=== PATIENT | male | born 1950 | race Caucasian/White ===

== ENCOUNTER 2016-10-21 04:08 | Inpatient (IN) | payer OTHER ==
[2016-10-20 12:55] LABS: HEMOGLOBIN 13.5 g/dL (13.7-18.0)
[2016-10-20 12:59] LABS: PATH.CAST-FLAG NOT PRESENT; SPERM-FLAG NOT PRESENT; SRC-FLAG NOT PRESENT; XTAL-FLAG NOT PRESENT; YLC-FLAG NOT PRESENT
[2016-10-20 13:05] LABS: BLOOD UREA NITROGEN 23 mg/dL (7-18)
[2016-10-20 13:10] LABS: ASPARTATE AMINO TRANSFERASE 15 U/L (15-37)
[~2016-10-21] VITALS: Ht 182.9 cm; Wt 98.6 kg
[~2016-10-21 04:08] MED LIST: ASPI-496 PO; ATOR-2 PO; CARV6.252 PO; CLOP75TA PO; DOXY100T9 PO; GABA300C10 PO; GENTAMICIN TD; GLIP-164 PO; HYDR-3237 PO; HYDR12.58 PO; LISI-170 PO; METF500T4 PO; SMZ/TMP PO; TRAM50TA2 PO; VARE1TAB21 PO
[2016-10-21] MEDS ORDERED: CHLORHEXIDINE MOUTHWASH 15 ML UDC MM SCH (04:30)
[2016-10-21] MEDS ORDERED: ALBUMIN HUMAN 5% 500 ML IV ONE (04:30)
[2016-10-21] MEDS ORDERED: DO NOT GIVE MC SCH (04:30)
[2016-10-21] MEDS ORDERED: METOPROLOL TARTRATE 25 MG TABLET PO ONE (05:00)
[2016-10-21] MEDS ORDERED: INSULIN ASPART 100 UNITS/ML, PEN SQ-INSULIN SCH (06:00)
[2016-10-21 06:21] VITALS: BP_SYST 135; BP_DIAS 80; BP_DIAS 82
[2016-10-21] MEDS ORDERED: HEPARIN 1,000 UNITS/ML, 10ML ONE (06:58)
[2016-10-21] MEDS ORDERED: PAPAVERINE 30 MG/ML, 2ML ONE (06:58)
[2016-10-21] MEDS ORDERED: FENTANYL PF 1000 MCG/20ML ONE (07:11)
[2016-10-21] MEDS ORDERED: MIDAZOLAM 10MG/2 ML ONE (07:11)
[2016-10-21] MEDS ORDERED: VANCOMYCIN 1,500 MG in SODIUM CHLORIDE 0.9% 250 ML IV PRN (07:30)
[2016-10-21] MEDS ORDERED: EPINEPHRINE 2 MG in SODIUM CHLORIDE 0.9% 248 ML IV SCH (07:30)
[2016-10-21] MEDS ORDERED: MANNITOL PMX 20% 500 ML IVPB PRN (07:30)
[2016-10-21] MEDS ORDERED: DEXMEDETOMIDINE 200 MCG in SODIUM CHLORIDE 0.9% 48 ML IV SCH (07:30)
[2016-10-21] MEDS ORDERED: REGULAR INSULIN 62.5 UNITS in SODIUM CHLORIDE 0.9% 249.375 ML IV PRN ×2 (07:30→12:27)
[2016-10-21] MEDS ORDERED: POTASSIUM CHLORIDE 80 MEQ, SODIUM BICARBONATE 8.4% 10 MEQ, MAGNESIUM SULFATE 0.5 GM, LI... IV PRN (07:30)
[2016-10-21] MEDS ORDERED: CEFUROXIME 1.5 GM in SODIUM CHLORIDE 0.9% 50 ML IVPB PRN (07:30)
[2016-10-21] MEDS ORDERED: PHENYLEPHRINE 10 MG in SODIUM CHLORIDE 0.9% 249 ML IV PRN ×2 (07:30→12:27)
[2016-10-21] MEDS ORDERED: PROPOFOL 10 MG/ML, 20ML ONE (08:15)
[2016-10-21] MEDS ORDERED: VASOPRESSIN 20 UNIT/ML, 1ML ONE (08:15)
[2016-10-21] MEDS ORDERED: ROCURONIUM 10 MG/ML ONE ×4 (08:15)
[2016-10-21] MEDS ORDERED: SODIUM CHLORIDE FLUSH 10ML SYR IVF SCH (09:00)
[2016-10-21] MEDS ORDERED: MUPIROCIN OINT 2%, 22GM TP SCH (09:00)
[2016-10-21] MEDS ORDERED: DESMOPRESSIN 28 MCG in SODIUM CHLORIDE 0.9% 50 ML IVPB ONE (12:00)
[2016-10-21] MEDS ORDERED: DOBUTAMINE 250 MG in SODIUM CHLORIDE 0.9% 230 ML IV PRN (12:27)
[2016-10-21] MEDS ORDERED: SODIUM CHLORIDE 0.9% 1,000 ML IV ONE (12:27)
[2016-10-21] MEDS ORDERED: DEXMEDETOMIDINE 200 MCG in SODIUM CHLORIDE 0.9% 48 ML IV PRN (12:27)
[2016-10-21] MEDS ORDERED: NITROGLYCERIN/D5W PMX 250 ML IV PRN (12:27)
[2016-10-21] MEDS ORDERED: SODIUM CHLORIDE 0.9% 1,000 ML IV PRN (12:27)
[2016-10-21] MEDS ORDERED: MEPERIDINE/PF 25MG/0.5ML IVPush PRN (12:30)
[2016-10-21] MEDS ORDERED: BISACODYL 5 MG EC TABLET PO PRN (12:30)
[2016-10-21] MEDS ORDERED: DEXTROSE 4 GM TAB.CHEW PO PRN (12:30)
[2016-10-21] MEDS ORDERED: LACTATED RINGERS 500 ML IVBOLUS PRN (12:30)
[2016-10-21] MEDS ORDERED: ACETAMINOPHEN 650 MG SUPP PR PRN (12:30)
[2016-10-21] MEDS ORDERED: PROCHLORPERAZINE 5 MG/ML, 2ML IVPush PRN (12:30)
[2016-10-21] MEDS ORDERED: BISACODYL 10 MG SUPP PR PRN (12:30)
[2016-10-21] MEDS ORDERED: EPINEPHRINE 2 MG in SODIUM CHLORIDE 0.9% 248 ML IV PRN (12:30)
[2016-10-21] MEDS ORDERED: MIDAZOLAM 1 MG/ML, 5ML IVPush PRN (12:30)
[2016-10-21] MEDS ORDERED: morphine SULFATE 10 MG/ML, 1ML IVPush PRN (12:30)
[2016-10-21] MEDS ORDERED: DEXTROSE 50%, 50ML SYRINGE IVPush PRN (12:30)
[2016-10-21] MEDS ORDERED: ACETAMINOPHEN 325 MG TABLET PO PRN (12:30)
[2016-10-21] MEDS ORDERED: GLUCAGON 1 MG IM PRN (12:30)
[2016-10-21] MEDS ORDERED: SODIUM BICARB 8.4%, 50ML SYRINGE IV PRN (12:30)
[2016-10-21] MEDS ORDERED: PROTAMINE SULFATE 10 MG/ML, 25ML ONE (12:48)
[2016-10-21] MEDS ORDERED: CALCIUM CHLORIDE 10%, 10ML SYR ONE (12:49)
[2016-10-21] MEDS ORDERED: AMINOCAPROIC ACID 250 MG/ML, 20ML ONE (12:49)
[2016-10-21] MEDS ORDERED: MAGNESIUM SULFATE PMX 2GM/50ML 50 ML ONE (12:49)
[2016-10-21] MEDS ORDERED: NITROGLYCERIN/D5W PMX 250 ML ONE (12:49)
[2016-10-21] MEDS ORDERED: AMIODARONE 50 MG/ML, 3ML ONE (12:49)
[2016-10-21] MEDS ORDERED: HEPARIN 1,000 UNITS/ML, 30ML ONE (12:53)
[2016-10-21] MEDS ORDERED: LIDOCAINE 2% 100MG/5ML SYRINGE ONE (12:53)
[2016-10-21] MEDS ORDERED: ALBUMIN HUMAN 25% 50 ML ONE (12:53)
[2016-10-21] MEDS: KSCALE TO 4.5 IV SCH ×2 (13:04→19:04)
[2016-10-21 13:12] LABS: ABG COLLECTION SITE ARTERIAL LINE
[2016-10-21 13:15] LABS: HEMATOCRIT 28.1 % (39.2-51.8); HEMOGLOBIN 9.5 g/dL (13.7-18.0)
[2016-10-21] MEDS ORDERED: POTASSIUM CHLORIDE PMX 100 ML IV ONE (14:00)
[2016-10-21] MEDS: MAGNESIUM SULFATE 1 GM in SODIUM CHLORIDE 0.9% 50 ML IVPB SCH (16:25)
[2016-10-21] MEDS: OXYcodone IR 5MG TABLET PO PRN ×4 (17:27→23:46)
[2016-10-21] MEDS: CEFUROXIME 1.5 GM in SODIUM CHLORIDE 0.9% 50 ML IVPB SCH (17:47)
[2016-10-21] MEDS: VANCOMYCIN 1,400 MG in SODIUM CHLORIDE 0.9% 250 ML IVPB SCH (19:32)
[2016-10-21 19:33] LABS: HEMATOCRIT 29.7 % (39.2-51.8); HEMOGLOBIN 9.7 g/dL (13.7-18.0)
[2016-10-21] MEDS: INSULIN ASPART 100 UNITS/ML, PEN SQ-INSULIN PRN ×4 (20:42→23:41)
[2016-10-21] MEDS: SODIUM CHLORIDE FLUSH 10ML SYR IVF SCH (20:42)
[2016-10-21] MEDS: DOCUSATE 100 MG CAPSULE PO SCH (20:44)
[2016-10-21] MEDS: MUPIROCIN OINT 2%, 22GM NAS SCH (20:44)
[2016-10-22] MEDS: INSULIN ASPART 100 UNITS/ML, PEN SQ-INSULIN PRN ×3 (00:45→12:28)
[2016-10-22] MEDS: KSCALE TO 4.5 IV SCH (01:04)
[2016-10-22 01:46] LABS: HEMATOCRIT 29.8 % (39.2-51.8); HEMOGLOBIN 9.7 g/dL (13.7-18.0)
[2016-10-22] MEDS: OXYcodone IR 5MG TABLET PO PRN ×3 (02:40→15:50)
[2016-10-22 04:20] LABS: ABG COLLECTION SITE ARTERIAL LINE
[2016-10-22 04:23] LABS: HEMATOCRIT 30.1 % (39.2-51.8); HEMOGLOBIN 9.9 g/dL (13.7-18.0); WHITE BLOOD COUNT 9.9 x10^3/uL (3.4-10)
[2016-10-22 04:31] LABS: BLOOD UREA NITROGEN 20 mg/dL (7-18)
[2016-10-22] MEDS: HYDROcodone/APAP 10/325 MG TABLET PO PRN ×3 (04:39→19:19)
[2016-10-22] MEDS: VANCOMYCIN 1,400 MG in SODIUM CHLORIDE 0.9% 250 ML IVPB SCH (06:09)
[2016-10-22] MEDS: CEFUROXIME 1.5 GM in SODIUM CHLORIDE 0.9% 50 ML IVPB SCH (06:09)
[2016-10-22] MEDS ORDERED: MAGNESIUM HYDROXIDE 8%, 30ML UDC PO PRN (08:00)
[2016-10-22] MEDS ORDERED: POTASSIUM CHLORIDE 10 MEQ TABLET.ER PO SCH (08:00)
[2016-10-22] MEDS ORDERED: FUROSEMIDE 20 MG/2 ML IV SCH (09:00)
[2016-10-22] MEDS: metFORMIN 500 MG TABLET PO SCH ×2 (09:00→19:20)
[2016-10-22] MEDS: CLOPIDOGREL 75 MG TABLET PO SCH (09:27)
[2016-10-22] MEDS: GABAPENTIN 300 MG CAPSULE PO SCH ×3 (09:28→19:20)
[2016-10-22] MEDS: PANTOPRAZOLE 40 MG IV IVPush SCH (09:29)
[2016-10-22] MEDS: ASPIRIN 81 MG TABLET EC PO SCH (09:30)
[2016-10-22] MEDS: MUPIROCIN OINT 2%, 22GM NAS SCH ×2 (09:30→19:19)
[2016-10-22] MEDS: DOCUSATE 100 MG CAPSULE PO SCH ×2 (09:30→19:19)
[2016-10-22] MEDS: MAGNESIUM SULFATE 1 GM in SODIUM CHLORIDE 0.9% 50 ML IVPB SCH (14:34)
[2016-10-22] MEDS: CHLORHEXIDINE MOUTHWASH 15 ML UDC MM SCH (14:34)
[2016-10-22] MEDS: SODIUM CHLORIDE FLUSH 10ML SYR IVF SCH ×3 (17:54→19:19)
[2016-10-22] MEDS: DOXYCYCLINE 100MG TABLET PO SCH (19:20)
[2016-10-22] MEDS: ATORVASTATIN 80 MG TABLET PO SCH (19:20)
[2016-10-22 20:10] VITALS: BP 123/66
[2016-10-23] VITALS (7 sets, daily range): BP systolic 91–142; BP diastolic 59–78
[2016-10-23] MEDS: HYDROcodone/APAP 10/325 MG TABLET PO PRN ×4 (00:42→22:14)
[2016-10-23] MEDS: METOPROLOL TARTRATE 25 MG TABLET PO/NG SCH ×4 (00:42→20:24)
[2016-10-23] MEDS: CHLORHEXIDINE MOUTHWASH 15 ML UDC MM SCH ×2 (00:42→13:41)
[2016-10-23] MEDS: OXYcodone IR 5MG TABLET PO PRN ×5 (02:11→21:20)
[2016-10-23 03:58] LABS: HEMATOCRIT 27.9 % (39.2-51.8); HEMOGLOBIN 9.1 g/dL (13.7-18.0); WHITE BLOOD COUNT 9.7 x10^3/uL (3.4-10)
[2016-10-23 04:09] LABS: BLOOD UREA NITROGEN 19 mg/dL (7-18)
[2016-10-23] MEDS: ENOXAPARIN 40 MG/0.4 ML SQ SCH (08:23)
[2016-10-23] MEDS: FUROSEMIDE 20 MG/2 ML IV SCH ×2 (08:37→20:24)
[2016-10-23] MEDS: SODIUM CHLORIDE FLUSH 10ML SYR IVF SCH ×4 (08:38→21:22)
[2016-10-23] MEDS: MUPIROCIN OINT 2%, 22GM NAS SCH ×2 (08:38→20:23)
[2016-10-23] MEDS: ASPIRIN 81 MG TABLET EC PO SCH (08:39)
[2016-10-23] MEDS: DOCUSATE 100 MG CAPSULE PO SCH ×2 (08:39→20:24)
[2016-10-23] MEDS: POTASSIUM CHLORIDE 10 MEQ TABLET.ER PO SCH ×2 (08:39→20:23)
[2016-10-23] MEDS: metFORMIN 500 MG TABLET PO SCH ×2 (08:39→20:24)
[2016-10-23] MEDS: CLOPIDOGREL 75 MG TABLET PO SCH (08:40)
[2016-10-23] MEDS: GABAPENTIN 300 MG CAPSULE PO SCH ×3 (08:40→20:24)
[2016-10-23] MEDS: PANTOPRAZOLE 40 MG IV IVPush SCH (08:42)
[2016-10-23] MEDS: DOXYCYCLINE 100MG TABLET PO SCH ×2 (08:44→20:24)
[2016-10-23] MEDS: INSULIN ASPART 100 UNITS/ML, PEN SQ-INSULIN PRN ×4 (08:51→20:28)
[2016-10-23] MEDS: MAGNESIUM SULFATE 1 GM in SODIUM CHLORIDE 0.9% 50 ML IVPB SCH (13:41)
[2016-10-23] MEDS: ATORVASTATIN 80 MG TABLET PO SCH (20:24)
[2016-10-24] MEDS: CHLORHEXIDINE MOUTHWASH 15 ML UDC MM SCH (00:51)
[2016-10-24] MEDS: OXYcodone IR 5MG TABLET PO PRN ×6 (00:51→21:56)
[2016-10-24 02:32] VITALS: BP 95/58
[2016-10-24 05:58] LABS: BLOOD UREA NITROGEN 23 mg/dL (7-18)
[2016-10-24 07:15] VITALS: BP 103/66
[2016-10-24] MEDS: INSULIN ASPART 100 UNITS/ML, PEN SQ-INSULIN PRN ×4 (08:31→22:04)
[2016-10-24] MEDS: SODIUM CHLORIDE FLUSH 10ML SYR IVF SCH ×4 (08:32→21:56)
[2016-10-24] MEDS: FUROSEMIDE 20 MG/2 ML IV SCH ×2 (08:32→21:55)
[2016-10-24] MEDS: MUPIROCIN OINT 2%, 22GM NAS SCH ×2 (08:33→21:55)
[2016-10-24] MEDS: ASPIRIN 81 MG TABLET EC PO SCH (08:34)
[2016-10-24] MEDS: DOCUSATE 100 MG CAPSULE PO SCH ×2 (08:34→21:55)
[2016-10-24] MEDS: POTASSIUM CHLORIDE 10 MEQ TABLET.ER PO SCH ×2 (08:35→21:54)
[2016-10-24] MEDS: metFORMIN 500 MG TABLET PO SCH ×2 (08:35→21:55)
[2016-10-24] MEDS: PANTOPROZOLE 40MG TABLET PO SCH (08:36)
[2016-10-24] MEDS: GABAPENTIN 300 MG CAPSULE PO SCH ×3 (08:36→21:54)
[2016-10-24] MEDS: CLOPIDOGREL 75 MG TABLET PO SCH (08:36)
[2016-10-24] MEDS: DOXYCYCLINE 100MG TABLET PO SCH ×2 (08:37→21:55)
[2016-10-24] MEDS: METOPROLOL TARTRATE 25 MG TABLET PO/NG SCH ×2 (08:38→21:55)
[2016-10-24] MEDS: ENOXAPARIN 40 MG/0.4 ML SQ SCH (08:38)
[2016-10-24] MEDS ORDERED: CLOPIDOGREL 75 MG TABLET PO SCH (09:00)
[2016-10-24 14:45] VITALS: BP 113/72
[2016-10-24 19:38] VITALS: BP 104/63
[2016-10-24] MEDS: ATORVASTATIN 80 MG TABLET PO SCH (21:55)
[2016-10-25 01:52] VITALS: BP 96/60
[2016-10-25] MEDS: ONDANSETRON 2MG/ML, 2ML IVPush PRN ×2 (03:43→08:03)
[2016-10-25 05:44] LABS: HEMOGLOBIN 8.8 g/dL (13.7-18.0); WHITE BLOOD COUNT 6.4 x10^3/uL (3.4-10)
[2016-10-25 05:53] LABS: BLOOD UREA NITROGEN 27 mg/dL (7-18)
[2016-10-25 07:40] VITALS: BP 118/69
[2016-10-25] MEDS: ENOXAPARIN 40 MG/0.4 ML SQ SCH (10:17)
[2016-10-25] MEDS: MUPIROCIN OINT 2%, 22GM NAS SCH ×2 (10:31→21:00)
[2016-10-25] MEDS: metFORMIN 500 MG TABLET PO SCH ×2 (10:32→17:21)
[2016-10-25] MEDS: GABAPENTIN 300 MG CAPSULE PO SCH ×3 (10:33→22:11)
[2016-10-25] MEDS: POTASSIUM CHLORIDE 10 MEQ TABLET.ER PO SCH ×2 (10:33→21:38)
[2016-10-25] MEDS: CLOPIDOGREL 75 MG TABLET PO SCH (10:33)
[2016-10-25] MEDS: DOXYCYCLINE 100MG TABLET PO SCH ×2 (10:33→21:38)
[2016-10-25] MEDS: PANTOPROZOLE 40MG TABLET PO SCH (10:33)
[2016-10-25] MEDS: METOPROLOL TARTRATE 25 MG TABLET PO/NG SCH ×2 (10:34→21:38)
[2016-10-25] MEDS: ASPIRIN 81 MG TABLET EC PO SCH (10:35)
[2016-10-25] MEDS: DOCUSATE 100 MG CAPSULE PO SCH ×2 (10:35→21:00)
[2016-10-25] MEDS: FUROSEMIDE 20 MG/2 ML IV SCH ×2 (10:36→17:21)
[2016-10-25] MEDS: SODIUM CHLORIDE FLUSH 10ML SYR IVF SCH ×4 (10:37→21:37)
[2016-10-25] MEDS: INSULIN ASPART 100 UNITS/ML, PEN SQ-INSULIN PRN ×4 (10:41→21:39)
[2016-10-25] MEDS: OXYcodone IR 5MG TABLET PO PRN ×2 (10:53→21:39)
[2016-10-25 15:45] VITALS: BP 102/65
[2016-10-25] MEDS ORDERED: BISACODYL 5 MG EC TABLET PO PRN (16:30)
[2016-10-25] MEDS ORDERED: BISACODYL 10 MG SUPP PR PRN (16:30)
[2016-10-25] MEDS ORDERED: ACETAMINOPHEN 325 MG TABLET PO PRN (16:30)
[2016-10-25] MEDS ORDERED: ACETAMINOPHEN 650 MG SUPP PR PRN (16:30)
[2016-10-25] MEDS ORDERED: DEXTROSE 4 GM TAB.CHEW PO PRN (16:30)
[2016-10-25] MEDS ORDERED: GLUCAGON 1 MG IM PRN (16:30)
[2016-10-25] MEDS ORDERED: DEXTROSE 50%, 50ML SYRINGE IVPush PRN (16:30)
[2016-10-25 19:09] VITALS: BP 126/68
[2016-10-25] MEDS: ATORVASTATIN 80 MG TABLET PO SCH (21:38)
[2016-10-26 00:37] VITALS: BP 122/78
[2016-10-26] MEDS: SODIUM CHLORIDE FLUSH 10ML SYR IVF SCH ×2 (04:30→08:01)
[2016-10-26 06:00] LABS: BLOOD UREA NITROGEN 26 mg/dL (7-18)
[2016-10-26 07:19] VITALS: BP 124/80
[2016-10-26] MEDS: DOCUSATE 100 MG CAPSULE PO SCH (07:48)
[2016-10-26] MEDS: FUROSEMIDE 20 MG/2 ML IV SCH (07:59)
[2016-10-26] MEDS: OXYcodone IR 5MG TABLET PO PRN (08:00)
[2016-10-26] MEDS: ENOXAPARIN 40 MG/0.4 ML SQ SCH (08:00)
[2016-10-26] MEDS: POTASSIUM CHLORIDE 10 MEQ TABLET.ER PO SCH (08:00)
[2016-10-26] MEDS: ASPIRIN 81 MG TABLET EC PO SCH (08:00)
[2016-10-26] MEDS: MUPIROCIN OINT 2%, 22GM NAS SCH (08:00)
[2016-10-26] MEDS: metFORMIN 500 MG TABLET PO SCH (08:01)
[2016-10-26] MEDS: PANTOPROZOLE 40MG TABLET PO SCH (08:01)
[2016-10-26] MEDS: CLOPIDOGREL 75 MG TABLET PO SCH (08:01)
[2016-10-26] MEDS: DOXYCYCLINE 100MG TABLET PO SCH (08:01)
[2016-10-26] MEDS: METOPROLOL TARTRATE 25 MG TABLET PO/NG SCH (08:01)
[2016-10-26] MEDS: GABAPENTIN 300 MG CAPSULE PO SCH (08:01)
[2016-10-26] MEDS ORDERED: FURO-93 PO (10:19)
[2016-10-26] MEDS ORDERED: LISI-424 PO (10:19)
[2016-10-26] MEDS ORDERED: POTA10TA5 PO (10:19)
[2016-10-26] MEDS ORDERED: MORP-52 PO (12:30)
[2016-10-26] MEDS ORDERED: OXYC5CAP2 PO (12:31)
== END 2016-10-26 14:40 | disposition home or self-care (01) | DRG 235 ==
LOC: 5SO 04:08 → CSU 08:01 → 5SO 10-23 02:01
PROVIDERS: ADMIT Thoracic Surgery (Cardiothoracic Vascular Surgery); ATTEND Thoracic Surgery (Cardiothoracic Vascular Surgery)
PROC: 02100Z9 Bypass Coronary Artery, One Artery from Left Internal Mammary, Open Approach (ICD-10-PCS; 2016-10-21)
PROC: 06BQ4ZZ Excision of Left Saphenous Vein, Percutaneous Endoscopic Approach (ICD-10-PCS; 2016-10-21)
PROC: 06BS4ZZ (ICD-10-PCS; 2016-10-21)
PROC: 5A1221Z Performance of Cardiac Output, Continuous (ICD-10-PCS; 2016-10-21)
PROC: 6A550Z2 Pheresis of Platelets, Single (ICD-10-PCS; 2016-10-21)
PROC: 5A1223Z Performance of Cardiac Pacing, Continuous (ICD-10-PCS; 2016-10-21)
PROC: 021209W Bypass Coronary Artery, Three Arteries from Aorta with Autologous Venous Tissue, Open Approach (ICD-10-PCS; principal; 2016-10-21 08:00)
DX: I25.119 Atherosclerotic heart disease of native coronary artery with unspecified angina pectoris (principal); J96.90 Respiratory failure, unspecified, unspecified whether with hypoxia or hypercapnia; M86.671 Other chronic osteomyelitis, right ankle and foot; E11.22 Type 2 diabetes mellitus with diabetic chronic kidney disease; E11.51 Type 2 diabetes mellitus with diabetic peripheral angiopathy without gangrene; N18.9 Chronic kidney disease, unspecified; E78.5 Hyperlipidemia, unspecified; E11.69 Type 2 diabetes mellitus with other specified complication; E78.00 Pure hypercholesterolemia, unspecified; I12.9 Hypertensive chronic kidney disease with stage 1 through stage 4 chronic kidney disease, or unspecified chronic kidney disease; R33.9 Retention of urine, unspecified; Z86.73 Personal history of transient ischemic attack (TIA), and cerebral infarction without residual deficits; Z87.891 Personal history of nicotine dependence; Z89.411 Acquired absence of right great toe; Z95.1 Presence of aortocoronary bypass graft; Z95.5 Presence of coronary angioplasty implant and graft; Z79.899 Other long term (current) drug therapy
CPT/HCPCS: 36415; 36600; 71010; 71020; 80048; 80053; 81001; 82040; 82330; 82800; 82803; 82810; 82947; 82962; 83036; 83735; 84132; 84295; 85014; 85018; 85025; 85049; 85347; 85610; 85730; 86850; 86900; 86923; 87081; 93005; 93312; 93321; 93325; 94002; J0697; J1644; J1650; J1815; J2250; J2405; J2597; J2704; J2720; J3010; J3370; J3475; J3480; J3490; P9045; P9047; C1751; C9113; J0171; J0282; J1940; J2270; J2370; J2440; J7030; J7050; P9035